=== PATIENT | female | born 2000 | race Caucasian/White ===

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

== ENCOUNTER 2022-11-21 23:09 | Inpatient (IN) | payer OTHER ==
[2022-11-21] MEDS ORDERED: LACTATED RINGERS 500 ML IV ONE (23:34)
[2022-11-21] MEDS ORDERED: METHYLERGONOVINE 0.2 MG/ML VIAL IM PRN (23:41)
[2022-11-21] MEDS ORDERED: fentaNYL 100 MCG/2 ML VIAL IVP PRN (23:41)
[2022-11-21] MEDS ORDERED: miSOPROStoL 200 MCG TABLET PR PRN (23:41)
[2022-11-21] MEDS ORDERED: miSOPROStoL 200 MCG TABLET BC PRN (23:41)
[2022-11-21] MEDS ORDERED: hydrALAZINE INJ 20 MG/ML VIAL IVP PRN ×2 (23:41)
[2022-11-21] MEDS ORDERED: SODIUM CHLORIDE FLUSH 0.9% 10 ML SYRINGE IVP PRN (23:41)
[2022-11-21] MEDS ORDERED: lidocaine 1% 20 ML MDV ID PRN (23:41)
[2022-11-21] MEDS ORDERED: TRANEXAMIC ACID IN NACL 1,000 MG/100 ML BAG IV PRN (23:41)
[2022-11-21] MEDS ORDERED: LABETALOL 20 MG/4 ML SYRINGE IVP PRN ×3 (23:41)
[2022-11-21] MEDS ORDERED: CARBOPROST TROMETHAMINE 250 MCG/ML AMP IM PRN (23:41)
[2022-11-21] MEDS ORDERED: OXYTOCIN 10 UNIT/ML VIAL IM PRN (23:41)
[2022-11-21] MEDS ORDERED: NIFEdipine 10 MG CAPSULE PO PRN (23:41)
[2022-11-21] MEDS ORDERED: TERBUTALINE 1 MG/ML VIAL SUBQ PRN (23:41)
[2022-11-21] MEDS ORDERED: SODIUM CHLORIDE FLUSH 0.9% 10 ML SYRINGE IVP SCH (23:45)
[2022-11-22 00:11] LABS: BASOPHILS # (AUTO) 0.1 10^3/uL (0.0-0.1); BASOPHILS % (AUTO) 0.3 %; EOSINOPHILS # (AUTO) 0.1 10^3/uL (0.0-0.7); EOSINOPHILS % (AUTO) 0.4 %; HCT - HEMATOCRIT 30.8 % (37.0-47.0); HGB - HEMOGLOBIN 10.2 g/dL (12.0-16.0); LYMPHOCYTES # (AUTO) 1.8 10^3/uL (1.5-3.5); LYMPHOCYTES % (AUTO) 11.9 %; MEAN CORPUSCULAR HGB CONC 33.1 g/dL (32.0-36.0); MEAN CORPUSCULAR VOLUME 84.6 fL (81.0-99.0); MEAN PLATELET VOLUME 10.5 fL (7.9-10.8); MONOCYTES # (AUTO) 0.6 10^3/uL (0.0-1.0); MONOCYTES % (AUTO) 4.1 %; NEUTROPHILS # (AUTO) 12.2 10^3/uL (1.5-6.6); NEUTROPHILS % (AUTO) 82.9 %; PLT - PLATELET COUNT 216 10^3/uL (130-450); RED BLOOD COUNT 3.64 10^6/uL (4.20-5.40); RED CELL DISTRIBUTION WIDTH 13.4 % (12.0-15.0); WHITE BLOOD COUNT 14.8 x10^3/uL (4.8-10.8)
[2022-11-22] MEDS ORDERED: ROPIVACAINE 0.2% 200 MG/100 ML BAG EP ONE (00:19)
[2022-11-22] MEDS: LACTATED RINGERS 1,000 ML IV SCH ×2 (00:20→12:07)
--- NOTE | 2022-11-22 00:41 | HISTORY & PHYSICAL EXAMINATION ---
Admit History - Visit Reason Visit Reason: Bleeding - moderate - : 1 Parity: 0 Premature: 0 Ectopic: 0 : 0 Care: positive: [facility] Risk/History: positive: None Complications This : positive: None Smoking Status: Never smoker - Mother's Labs Mother's Blood Type: positive: AB Mother's RH: positive: Positive GBS: positive: Group B Step Negative Rubella Status: positive: Immune Meds/Allgy - Home Medications Home Medications: Ambulatory Orders Medication Instructions Recorded Confirmed Control Implant 1 each SUBQ TITR 06/17/16 01/31/17 Azithromycin [Zithromax] 250 mg PO DAILY 01/31/17 01/31/17 - Allergies Allergies/Adverse Reactions: Allergies Allergy/AdvReac Type Severity Reaction Status Date / Time No Known Drug Allergies Allergy Verified 01/31/17 11:14 Review of Systems - Constitutional Constitutional: denies: Fatigue, Fever, Malaise - Eyes Eyes: denies: Blurred vision, Spots in vision, Dipolpia - Cardiovascular Cariovascular: denies: Irregular heart rate, Palpitations, Chest pain, Edema, Lightheadedness - Respiratory Respiratory: denies: Cough, Wheezing, SOB at rest - Gastrointestinal Gastrointestinal: denies: Abdominal pain, Abdominal distention, Constipation, Diarrhea, Change in bowel habits, Rectal bleeding, Bloody stools, Nausea, Vomiting - Genitourinary Genitourinary: denies: Dysuria, Flank pain - Musculoskeletal Musculoskeletal: denies: Back pain - Integumentary Integumentary: denies: Rash, Pruritis - Neurological Neurological: denies: Headache Physical - Abdominal Exam Vital Signs: Temp Pulse Resp BP Pulse Ox O2 Flow Rate 37.1 C 95 16 148/89 H 98 11/21/22 23:24 11/21/22 23:15 11/21/22 23:15 11/21/22 23:15 11/21/22 23:15 Contraction Frequency (min/apart): 3-6 Contraction Intensity: positive: Mild - Monitoring Heart Rate Baseline: 130 Strip Review: positive: Category II - Presentation Presentation: positive: Vertex - Vaginal Exam Membranes: positive: Membranes intact Dilation (in cm): 3 Effacement (%): 80 Station: positive: -3 Cervical Position: positive: Posterior - Speculum Exam Speculum Exam Performed: positive: No Findings: positive: Other - Other Notes Labor Progress Note/Additional Text: HPI: This 22yo @ 39.4wks gestation by LMP c/w 9.1wk U/S who presents to [facility] w/o complaints of contractions and vaginal bleeding. She states took castor oil at 1400 this afternoon and her contractions began at approximately 2000. She then noticed a large amount of bleeding and a golf ball sized clot at 2300 and presented immediately for evaluation. She denies leakage of any fluid other than blood. She denies abdominal pain. She feels her contractions are difficult to cope with and she requests an epidural for pain management as soon as possible. FHR baseline 140s, minimal variability, no accels, 2 late decelerations noted in a 30 minute period of time. She has been a patient of [facility] in [place] and seeking Heike Ham CNM/SHAHRAM for the duration of her which has remained uncomplicated with the exception of mild anemia. She is supported by her parents and her partner Clark. She is noted to be GBS negative. Dating criteria: LMP: 02/10/2022 - JENNIFER by LMP 11/17/2022 Initial U/S @ 9.1wks NOT concordant with LMP dating. JENNIFER by U/S 11/24/2022 dates . Serial exams - agree float remover Hx: Last pap age 16-unsure why performed at [facility], No hx of abnormals. Medical Hx: none significant Surgical Hx: none Family Hx: noncontributory Meds: Folic acid gummy only Allergies: None known Social: Lives with supportive partner. Plans to move to [place] after the . Works FT as a palliative care nurse. No tobacco, ETOH or recreational drug use. Caffeine intake minimal. course: AB positive, antibody negative Rubella immune NIPS negative MsAFP negative FAS WNL with the exception of cardiac outflow tracts not well visualized. Anteri or placenta, no previa (2.1cm from cervical os). 3VC. Size c/w dates (EFW 55%tile). Completion FAS WNL. Cardiac outflow tracts visualized and WNL. Placental edge now 2.5cm from the internal os @ 21.6wks. Glucola 111 Tdap 09/03/2022 GBS negative Physical exam: Normocephalic, atraumatic Heart RRR w/o M/G/R Lungs CTAB Abdomen gravid, soft, nontender EFW 3400g FHR baseline 130s, minimal variability with intermittent period of moderate variability, no accels, occasional late decels Contractions palpate moderate every 2.5-4 minutes with soft resting tone SVE 3/80/-3, posterior, vertex. Intact membranes Moderate amount of dark red blood noted down patient's legs, on her hands, and 4cm clot noted in vaginal canal with SVE Bilateral LE's trace edema. Mood is stable. Assessment: 22yo @ 39.4wks gestation Suspected placental abruption Early labor GBS neg FHR Category II Plan: alteration tailor apprentice physician notified of reassuring maternal and status and present time in the presence of moderate vaginal bleeding. Anesthesia notified to present for placement of epidural per maternal request. Continuous monitoring. Will closely monitor both and maternal status and notify physician to present for evaluation PRN. Repeat SVE in 2 hours or sooner PRN.
[2022-11-22] MEDS ORDERED: NALOXONE 0.4 MG/ML VIAL IVP PRN (01:22)
[2022-11-22] MEDS ORDERED: ePHEDrine 50 MG/ML VIAL IVP PRN (01:22)
[2022-11-22] MEDS ORDERED: ROPIVACAINE 0.2% 200 MG/100 ML BAG EP PRN (01:22)
[2022-11-22] MEDS ORDERED: METOCLOPRAMIDE 10 MG/2 ML VIAL IVP PRN (01:22)
[2022-11-22] MEDS ORDERED: NALBUPHINE 10 MG/ML AMP IVP PRN (01:22)
[2022-11-22] MEDS ORDERED: diphenhydrAMINE INJ 50 MG/ML VIAL IVP PRN (01:22)
--- NOTE | 2022-11-22 01:28 | ANESTHESIA ---
Pre-Anesthesia VS, & Labs - Diagnosis labor pain - Procedure labor epidural Vital Signs: Temp Pulse Resp BP Pulse Ox O2 Flow Rate 37.1 C 90 20 125/86 H 100 11/22/22 00:41 11/22/22 00:16 11/22/22 00:16 11/22/22 00:16 11/22/22 00:16 Height: 5 ft 2 in Weight (kg): 76.204 kg Body Mass Index: 30.7 BMI Classification: Obese - NPO Other (full stomach) - Is Patient ?: Yes - Lab Results Current Lab Results: Laboratory Tests 11/21/22 00:01: Blood Type AB POSITIVE, Antibody Screen NEGATIVE 11/21/22 00:01: WBC 14.8 H, RBC 3.64 L, Hgb 10.2 L, Hct 30.8 L, MCV 84.6, MCH 28.0, MCHC 33.1, RDW 13.4, Plt Count 216, MPV 10.5, Neut # (Auto) 12.2 H, Lymph # (Auto) 1.8, [place] # (Auto) 0.6, Eos # (Auto) 0.1, Baso # (Auto) 0.1, Absolute Nucleated RBC 0.00, Nucleated RBC % 0.0 Fish Bones: 11/21/22 00:01 Home Medications and Allergies Active Medications Carboprost Tromethamine (Carboprost Tromethamine 250 Mcg/Ml Amp) 250 mcg IM .ONCE PRN PRN Reason: Hemorrhage Diphenhydramine HCl (Diphenhydramine Inj 50 Mg/Ml Vial) 12.5 - 25 mg IVP Q6HR PRN PRN Reason: ITCHING Ephedrine Sulfate (Ephedrine 50 Mg/Ml Vial) 5 mg IVP Q5M PRN PRN Reason: For SBP<100;give until SBP>100 Fentanyl (Fentanyl 100 Mcg/2 Ml Vial) 50 mcg IVP Q1H PRN PRN Reason: Severe Pain (score 7-10) Hydralazine HCl (Hydralazine Inj 20 Mg/Ml Vial) 5 - 10 mg IVP Q20M PRN; Protocol PRN Reason: SBP> or= 160 OR DBP> or= 110 Hydralazine HCl (Hydralazine Inj 20 Mg/Ml Vial) 10 mg IVP .ONCE PRN; Protocol PRN Reason: SBP> or= 160 OR DBP> or= 110 Oxytocin/Sodium Chloride (Pitocin/Sodium Chloride) 500 mls @ 999 mls/hr IV PRN PRN; Protocol PRN Reason: POST- HEMORR PREVENTION Tranexamic Acid (Tranexamic 1,000 Mg/100ml-Nacl) 1,000 mg in 100 mls @ 600 mls/hr IV Q30M PRN PRN Reason: EBL >1200mL and within 3hr Lactated Ringer's (Lr) 1,000 mls @ 125 mls/hr IV .Q8H KARLA Ropivacaine (Naropin 0.2%) 200 mg in 100 mls @ 0 mls/hr EP PRN PRN; Protocol PRN Reason: PAIN Labetalol HCl (Labetalol 20 Mg/4 Ml Syringe) 20 - 80 mg IVP Q10M PRN; Protocol PRN Reason: SBP> or= 160 OR DBP> or= 110 Labetalol HCl (Labetalol 20 Mg/4 Ml Syringe) 20 mg IVP .ONCE PRN; Protocol PRN Reason: SBP> or= 160 OR DBP> or= 110 Labetalol HCl (Labetalol 20 Mg/4 Ml Syringe) 20 - 40 mg IVP Q10M PRN; Protocol PRN Reason: SBP> or= 160 OR DBP> or= 110 Lidocaine HCl (Lidocaine 1% 20 Ml Mdv) 20 ml ID .ONCE PRN PRN Reason: PERINEAL REPAIR Stop: 11/24/22 23:41 Methylergonovine Maleate (Methylergonovine 0.2 Mg/Ml Vial) 0.2 mg IM .ONCE PRN PRN Reason: Hemorrhage Metoclopramide HCl (Metoclopramide 10 Mg/2 Ml Vial) 10 mg IVP Q6HR PRN PRN Reason: Nausea / Vomiting Misoprostol (Misoprostol 200 Mcg Tablet) 600 mcg BC .ONCE PRN PRN Reason: Hemorrhage Misoprostol (Misoprostol 200 Mcg Tablet) 800 mcg MA .ONCE PRN PRN Reason: Hemorrhage Nalbuphine HCl (Nalbuphine 10 Mg/Ml Amp) 2.5 - 5 mg IVP Q4H PRN PRN Reason: ITCHING Naloxone HCl (Naloxone 0.4 Mg/Ml Vial) 0.1 mg IVP Q2M PRN PRN Reason: RR<8 Nifedipine (Nifedipine 10 Mg Capsule) 10 - 20 mg PO Q20M PRN; Protocol PRN Reason: SBP> or= 160 OR DBP> or= 110 Ondansetron HCl (Ondansetron 4 Mg/2 Ml Vial) 4 mg IVP Q6HR PRN PRN Reason: Nausea / Vomiting Oxytocin (Oxytocin 10 Unit/Ml Vial) 10 unit IM .ONCE PRN PRN Reason: Step One if no IV access. Sodium Chloride (Sodium Chloride Flush 0.9% 10 Ml Syringe) 10 ml IVP PRN PRN PRN Reason: NEEDED PER PROVIDER ORDERS Sodium Chloride (Sodium Chloride Flush 0.9% 10 Ml Syringe) 10 ml IVP Q8H KARLA Terbutaline Sulfate (Terbutaline 1 Mg/Ml Vial) 0.25 mg SUBQ .ONCE PRN PRN Reason: Tachystole Control Implant 1 each SUBQ TITR 06/17/16 Azithromycin [Zithromax] 250 mg PO DAILY 01/31/17 Allergies/Adverse Reactions: Allergies Allergy/AdvReac Type Severity Reaction Status Date / Time No Known Drug Allergies Allergy Verified 01/31/17 11:14 Anes History & Medical History - Anesthetic History Anesthesia Complications: reports: No previous complications Family history of Anesthesia Complications: Denies Family history of Malignant Hyperthermia: Denies - Medical History Cardiovascular: reports: None Pulmonary: reports: None Smoking Status: Never smoker - Obstetrical History : 1 Parity: 0 Events: reports: None Complications: reports: None Exam General: Alert, Oriented x3, Cooperative Dental: WNL Mouth Openin Fingerbreadth Neck Mobility: Normal Mallampati classification: I Thyromental Distance: 4-6 cm Respiratory: Lungs clear Cardiovascular: Regular rate Plan Anesthesia Type: Epidural Consent for Procedure(s) Verified and Reviewed: Yes Code Status: Attempt Resuscitation ASA classification: 2-Mild systemic disease Is this case an emergency?: No
--- NOTE | 2022-11-22 01:38 | PROVIDER PROGRESS NOTE ---
Labor Progress Note - Uterine Monitoring Uterine Monitoring Mode: positive: External toco Contraction Frequency (min/apart): 2-5 Contraction Intensity: positive: Moderate Uterine Resting Tone: positive: Soft - Monitoring Monitor Mode: positive: External ultrasound Heart Rate Baseline: 130 Heart Rate Variability: positive: Moderate (6-25 bmp) Accelerations: positive: Absent Decelerations: positive: Late, Intermittent (<50% x20 min) Strip Review: positive: Category II - Vaginal Exam Dilation (in cm): 4 Effacement (%): 80 Station: -2 Cervical Position: Midposition - Labor Progress Note Labor Progress Note/Additional Text: S: Pt comfortable with epidural in place. She is feeling tired but overall she states she is doing well and her mood is good. Partner Clark supportive at the bedside. O: FHR baseline 130s, moderate variability with intermittent periods of minimal variability. No accels, occasional late decelerations. status is overall reassuring at this time. SVE 4/80/-2, midposition. Vertex. AROM occurred at 0130 and was noted to be a moderate amount of clear fluid. Light bleeding noted on exam glove once removed but overall bleeding has been minimal since last SVE. A: 22yo @ 39.4wks gestation by 9.1wk U/S Early labor FHR Category II - overall reassuring at present time GBS neg P: Continuous monitoring. Maintain epidural for pain management. Rotate in bed on peanut ball q 30 minutes. Anticipate .
--- NOTE | 2022-11-22 01:47 | PROCEDURE REPORT ---
- HPI Diagnosis/Indication for NST: Other Current EDU 11/24/22 Gestation 39 Weeks and 5 Days 1 Vital Signs Temperature 37.1 C 11/21/22 23:15 Heart Rate 95 11/21/22 23:15 Respiratory Rate 16 11/21/22 23:15 Blood Pressure 148/89 H 11/21/22 23:15 O2 Saturation 98 11/21/22 23:15 Temperature 37.1 C 11/22/22 00:41 Heart Rate 90 11/22/22 00:16 Respiratory Rate 20 11/22/22 00:16 Blood Pressure 125/86 H 11/22/22 00:16 O2 Saturation 100 11/22/22 00:16 If not protocol: Oxygen Flow, liters/minute - Results and Plan Plan: Nuris presents to [facility] with c/o large amount of vaginal bleeding and blood clot that filled the palm of her hand at 2300 on 11/21/2022. She denies leakage of fluid other than the bleeding. She reports +FM. She has been areli intermittently since approximately 2000 after taking castor oil at 1400 this afternoon. She reports her pain with contractions is severe but denies abdominal pain outside of her contractions and she is breathing through them without difficulty. She is supported by her partner Clark and her parents. NST performed 11/21/2022 NST read 11/21/2022, continuing to 11/22/2022 NST nonreactive. FHR baseline 130s, minimal variability, no accels, occasional late decelerations Contractions palpate moderate every 3-6 minutes with soft resting tone. A/P: Suspect placental abruption vs rapid cervical dilation. director call center sales physician notified and informed of patient and reassuring status at this time and discussed plan of care. Pt will be admitted for expectant management. Anesthesia notified for placement of epidural. I did discuss with her the potential for urgent/emergent delivery if status deteriorates and pt is accepting of delivery if needed. Discussed differential diagnosis/cause of vaginal bleeding with patient and her partner who verbalized understanding. FINAL DIAGNOSIS: Vaginal bleeding, third trimester Early labor >39wks gestation
[2022-11-22] MEDS: DEXTROSE 5%-LACTATED RINGERS 1,000 ML IV SCH ×2 (04:18→10:19)
--- NOTE | 2022-11-22 05:47 | PROVIDER PROGRESS NOTE ---
Labor Progress Note - Uterine Monitoring Uterine Monitoring Mode: positive: External toco Contraction Frequency (min/apart): 3-5 Contraction Intensity: positive: Moderate to strong Uterine Resting Tone: positive: Soft - Monitoring Monitor Mode: positive: External ultrasound Heart Rate Baseline: 130 Heart Rate Variability: positive: Moderate (6-25 bmp) Accelerations: positive: Present, 15x15 Decelerations: positive: None Strip Review: positive: Category I - Vaginal Exam Dilation (in cm): 7 Effacement (%): 90 Station: 0 Cervical Position: Anterior - Labor Progress Note Labor Progress Note/Additional Text: S: Patient comfortable with epidural and is sleeping through contractions. Partner and parents are supportive at the bedside. O: FHR baseline 130s, moderate variability, + accels, no decels Contractions palpate moderate to strong every 3-5 minutes with soft resting tone SVE 7/90/0, anterior,soft. Vertex. Minimal amount of pink blood noted on exam glove with SVE A: 22yo @ 39.5wks gestation by 9.1wk U/S Active labor FHR Category I GBS neg P: Continuous monitoring. Maintain epidural for pain management. Continue rotation on peanut ball in bed. Repeat SVE in 4 hours or sooner PRN. Anticipate .
[2022-11-22] MEDS: ONDANSETRON 4 MG/2 ML VIAL IVP PRN ×2 (06:57→12:01)
[2022-11-22] MEDS: OXYTOCIN/SODIUM CHLORIDE 500 ML IV PRN ×2 (10:55→11:45)
[2022-11-22] MEDS ORDERED: WITCH HAZEL/GLYCERIN 1 PAD TOP PRN (11:45)
[2022-11-22] MEDS ORDERED: HYDROCORTISONE 1% CREAM 28 GM TUBE PR PRN (11:45)
[2022-11-22 11:59] LABS: BASOPHILS # (AUTO) 0.1 10^3/uL (0.0-0.1); BASOPHILS % (AUTO) 0.3 %; EOSINOPHILS % (AUTO) 0.1 %; HCT - HEMATOCRIT 29.9 % (37.0-47.0); HGB - HEMOGLOBIN 9.7 g/dL (12.0-16.0); LYMPHOCYTES # (AUTO) 0.9 10^3/uL (1.5-3.5); LYMPHOCYTES % (AUTO) 4.6 %; MEAN CORPUSCULAR HEMOGLOBIN 28.2 pg (27.0-31.0); MEAN CORPUSCULAR HGB CONC 32.4 g/dL (32.0-36.0); MEAN CORPUSCULAR VOLUME 86.9 fL (81.0-99.0); MEAN PLATELET VOLUME 9.7 fL (7.9-10.8); MONOCYTES # (AUTO) 0.6 10^3/uL (0.0-1.0); MONOCYTES % (AUTO) 3.4 %; NEUTROPHILS # (AUTO) 17.1 10^3/uL (1.5-6.6); NEUTROPHILS % (AUTO) 90.9 %; PLT - PLATELET COUNT 207 10^3/uL (130-450); RED BLOOD COUNT 3.44 10^6/uL (4.20-5.40); RED CELL DISTRIBUTION WIDTH 13.5 % (12.0-15.0); WHITE BLOOD COUNT 18.8 x10^3/uL (4.8-10.8)
--- NOTE | 2022-11-22 12:10 | DELIVERY NOTE ---
Delivery Note - Labor Labor: positive: Augmented by ARM - Infant Delivery Method Delivery Method: positive: Spontaneous vaginal delivery - Presentation Presentation: positive: Vertex, TONY - right occiput anterior - Nuchal Cord Nuchal Cord: positive: None - Amniotic Fluid Description Amniotic Fluid Description: positive: [place] tinged - Episiotomy Type Episiotomy Type: positive: None - Laceration Laceration: positive: 1st degree, Labial, Vaginal - Suture Suture Type: positive: Vicryl Suture Size: positive: 2-0, 4-0 - Delivery Outcome Delivery Outcome: positive: Livebirth - [place] : positive: Placed in direct skin contact with mother, Bulb syringe, Stimulated, [place] used sex: positive: Female - Cord Cord: positive: 3 vessels - Placenta Placenta: positive: Intact, Spontaneous - Estimated Blood Loss Estimated Blood Loss (in cc): 1,294 - Post Delivery Events Post Delivery Events: positive: Hemorrhage - Delivery Comments (Free Text/Narrative) Delivery Comments (Free Text/Narrative): Labor: This 22yo @ 39.5wks gestation by 9.1wk U/S presented to [facility] with c/o vaginal bleeding and contractions. Cervix was 3/80/-3, vertex and posterior with large amount of blood noted on patients hand, legs, and feet bilaterally with 4cm clot in vaginal vault with SVE. FHR pattern demonstrated Category II pattern initially however overall remained reassuring and became Category I for the duration of her labor course. Epidural placed per maternal request. AROM occurred at 0130 and was noted to be a moderate amount of clear fluid. For the remainder of her labor course the vaginal bleeding was minimal with occasional scant amount of bloody show as expected. She progressed to c/c/ +2 at 1017 with onset of active pushing at 1022. : Normal SVB of viable female on 11/22/2022 @ 1043. No nuchal cord. The was placed on maternal abdomen, stimulated, dried, and placed skin to skin. 's were 8/9 at 1 and 5 minutes respectively. Pitocin administered via IV for hemostasis. The umbilical cord was allowed to stop pulsating at which time it was doubly clamped by CNM and cut by FOB. 3VC. Cord blood was obtained. Fundal massage and gentle cord traction applied for active management of the third stage. Placenta delivered spontaneously and intact @ 1055. Fouth stage: Uterine fundus firm initially followed by intermittent uterine atony with subsequent increased vaginal bleeding. Pt was given 600mcg BC misoprostol and 0.2mg IM methergine and TXA was initiated per protocol. The perineum, vagina, and cervix were inspected and noted to have a 1st degree vaginal laceration which was repaired using a 2-[address]-1 needle, in standard fashion and under sterile conditions. In addition she was noted to have a 1st degree right labial laceration which was repaired using a 4-0 vicryl on an SH needle. Vaginal examination following repair was performed. Tissues well approximated. initiated. Family bonding well. Uterine fundus firm without excessive bleeding following administration of medication of management of hemorrhage. Pt stable and remains asymptomatic throughout. Both mother and baby were left in stable condition. QBL 1294mL.
[2022-11-22] MEDS: ACETAMINOPHEN 500 MG TABLET PO SCH ×4 (14:09→23:25)
[2022-11-22] MEDS: IBUPROFEN 800 MG TABLET PO SCH ×2 (14:09→20:46)
[2022-11-22] MEDS: DOCUSATE SODIUM 100 MG CAPSULE PO SCH (21:11)
[2022-11-23] MEDS: IBUPROFEN 800 MG TABLET PO SCH ×3 (02:56→17:09)
[2022-11-23 07:06] LABS: BASOPHILS % (AUTO) 0.3 %; EOSINOPHILS # (AUTO) 0.1 10^3/uL (0.0-0.7); EOSINOPHILS % (AUTO) 0.7 %; HCT - HEMATOCRIT 23.3 % (37.0-47.0); HGB - HEMOGLOBIN 7.5 g/dL (12.0-16.0); LYMPHOCYTES # (AUTO) 0.9 10^3/uL (1.5-3.5); LYMPHOCYTES % (AUTO) 7.7 %; MEAN CORPUSCULAR HEMOGLOBIN 28.1 pg (27.0-31.0); MEAN CORPUSCULAR HGB CONC 32.2 g/dL (32.0-36.0); MEAN CORPUSCULAR VOLUME 87.3 fL (81.0-99.0); MEAN PLATELET VOLUME 9.9 fL (7.9-10.8); MONOCYTES # (AUTO) 0.5 10^3/uL (0.0-1.0); MONOCYTES % (AUTO) 4.1 %; NEUTROPHILS # (AUTO) 9.5 10^3/uL (1.5-6.6); NEUTROPHILS % (AUTO) 85.8 %; PLT - PLATELET COUNT 144 10^3/uL (130-450); RED BLOOD COUNT 2.67 10^6/uL (4.20-5.40); RED CELL DISTRIBUTION WIDTH 13.7 % (12.0-15.0); WHITE BLOOD COUNT 11.1 x10^3/uL (4.8-10.8)
[2022-11-23] MEDS: ACETAMINOPHEN 500 MG TABLET PO SCH ×2 (08:07→17:09)
[2022-11-23] MEDS: DOCUSATE SODIUM 100 MG CAPSULE PO SCH ×2 (10:24→21:14)
--- NOTE | 2022-11-23 11:18 | PROVIDER PROGRESS NOTE ---
Subjective - Subjective Subjective: S: Bonding well with baby. without difficulty. Pain well controlled with oral medications. Bleeding decreased and is light. Denies dizziness, lightheadedness, or nausea. She states she is fatigued but has slept very little throughout the night. O: Heart RRR w/o M/G/R, lungs CTAB, abdomen sot and nontender with fundus firm at U. Perineum intact, repair with mild edema, light lochia rubra. Bilateral LE's trace edema. Mood is good. VS stable Hgb 10.2-->9.7-->7.5 Hcg 30.8-->29.9-->23.3 PLT 216-->207-->144 A: 22yo -->P1 PPD#1 s/p TSVD viable female infant PP hemorrhage 1st degree perineal laceration - intact P: Initiate ferrous gluconate iron infusion x 1 secondary to pp hemorrhage and drop in H/H & plt Continue routine pp care and medications. Evaluate for discharge home tomorrow. Pt verbalized understanding and denies further questions or concerns at this time. Objective - Vital Signs/Intake & Output Vital Signs: Vital Signs x48h Temp Pulse Resp BP Pulse Ox 11/23/22 08:00 36.5 C 71 18 112/60 100 11/23/22 03:57 36.5 C 88 100 H 123/79 Intake & Output: Intake & Output 11/20/22 11/21/22 11/22/22 11/23/22 23:59 23:59 23:59 23:59 Intake Total 3833.334 Output Total 1760 Balance 2073.334 - Lab Results Fish Bones: 11/23/22 06:52 Other Labs: Lab Results x24hrs 11/23/22 11/22/22 Range/Units 06:52 11:54 WBC 11.1 H 18.8 H (4.8-10.8) x10^3/uL RBC 2.67 L 3.44 L (4.20-5.40) 10^6/uL Hgb 7.5 L 9.7 L (12.0-16.0) g/dL Hct 23.3 L 29.9 L (37.0-47.0) % MCV 87.3 86.9 (81.0-99.0) fL MCH 28.1 28.2 (27.0-31.0) pg MCHC 32.2 32.4 (32.0-36.0) g/dL RDW 13.7 13.5 (12.0-15.0) % Plt Count 144 207 (130-450) 10^3/uL MPV 9.9 9.7 (7.9-10.8) fL Neut # (Auto) 9.5 H 17.1 H (1.5-6.6) 10^3/uL Lymph # (Auto) 0.9 L 0.9 L (1.5-3.5) 10^3/uL [place] # (Auto) 0.5 0.6 (0.0-1.0) 10^3/uL Eos # (Auto) 0.1 0.0 (0.0-0.7) 10^3/uL Baso # (Auto) 0.0 0.1 (0.0-0.1) 10^3/uL Absolute Nucleated RBC 0.00 0.00 x10^3/uL Nucleated RBC % 0.0 0.0 /100WBC
[2022-11-23] MEDS ORDERED: FERRIC GLUCONATE 125 MG in SODIUM CHLORIDE 0.9% 100ML 100 ML IV ONE (11:19)
[2022-11-24] MEDS: IBUPROFEN 800 MG TABLET PO SCH (00:44)
--- NOTE | 2022-11-24 02:09 | Discharge Plan ---
Discharge Plan Problem Reviewed?: Yes Disposition: Home, Self Care Condition: Good Diet: Regular Activity Restrictions: No Restrictions Shower Restrictions: No Driving Restrictions: No Weight Bearing: Full Weight Instruction Topics: Vaginal After No Smoking: If you smoke, Please STOP! Call for help. Follow-up with: Ariela Garcia CNM, ARNP [Provider Admit Priv/Credential] - 1 Week (Has phone visit scheduled with Ariela Garcia 12/01/2021 @ 1500.)
--- NOTE | 2022-11-24 02:26 | DISCHARGE SUMMARY ---
Discharge Summary Condition at Discharge: Good Discharge Disposition: 01 Home, Self Care - HOSPITAL COURSE Hospital Course: Date of Admission: 11/21/2022 Date of Discharge 11/24/2022 Diagnosis on Admission: 1. 22yo @ 39.4wks gestation 2. Suspected placental abruption 3. Early labor 4. GBS neg 5. FHR Category II Date of Discharge: 1. 22yo PPD#2 s/p TSVD viable female 2. 3. Acute blood loss anemia following 1294mL hemorrhage at delivery Brief History: She is a [facility] who presented on 11/21/2022 with c/o large amount of vaginal bleeding and contractions. Upon arrival she was noted to have large amount of vaginal bleeding with 4cm clot expelled from vaginal vault with SVE. She was found to contract every 3-6 minutes with soft resting tone. SVE 3/80/-3, posterior and vertex with intact membranes. She was admitted for close observation and expectant management of labor. She received an epidural per her request. Her bleeding was minimal throughout her labor course following initial assessment and status remained reassuring throughout her labor course. She progressed to sponatneously deliver a viable female infant on 11/22/2022 @ 1043 following a 21 minute second stage. Apgars were 8/9 at 1 and 5 minutes respectively. Secondary to increased rate of vaginal bleeding the patient was given hemorrhage medications per protocol (see delivery note) with a total QBL of 1294mL. Patient was initially nauseous and lightheaded but this resolved. Her Hgb/Hct decreased (Hgb 10.2-->9.7-->7.5; Hcg 30.8-->29.9-->23.3; PLT 216-->207-->144) and an iron infusion was initiated on PPD#1. Patient remained asymptomatic through the duration of her course. She has been doing well in her course. She is ambulating and tolerating a regular diet. She is urinating without difficulty and her lochia is normal. Her pain is well controlled with oral medications. She is without difficulty and she is bonding well with her baby. Her transitioned well initially but is being transported via ground to [facility] now secondary to desaturations, low lung volumes, pulmonary infiltrate, questionable right eventration and cardiomegally which developed at 36 hours of life. Differential diagnosis per rn clinical evaluation are congenital cardiac disease, persistent pulmonary hypertension or infection. She will be discharged now so she can transport with her . She has been given instructions to continue taking her vitamin while and to continue taking ibuprofen and tylenol over the counter as needed for pain management. She intends to follow up with myself at [facility] in 1 week or sooner if needed. She has been given precautions to call if she has any worsening fevers, chills, abdominal pain, increased vaginal bleeding or foul smelling vaginal lochia. Physical Exam: Normocephalic, atraumatic. Heart RRR w/o M/G/R, lungs CTAB, abdomen soft and nontender with fundus firm at U-1, perineum intact, light lochia rubra, bilateral LE's trace edema. Mood is stable however teary given status and need for urgent transfer understandably. She is well supported by her partner Clark. - ALLERGIES Allergies/Adverse Reactions: Allergies Allergy/AdvReac Type Severity Reaction Status Date / Time No Known Drug Allergies Allergy Verified 01/31/17 11:14 - MEDICATIONS Home Medications: Ambulatory Orders Medication Instructions Recorded Confirmed Control Implant 1 each SUBQ TITR 06/17/16 01/31/17 Azithromycin [Zithromax] 250 mg PO DAILY 01/31/17 01/31/17 - LABS Result Diagrams: 11/23/22 06:52
[2022-11-24] MEDS: ACETAMINOPHEN 500 MG TABLET PO SCH (02:29)
[2022-11-24 04:19] VITALS: BP 127/74
--- NOTE | 2022-11-24 07:33 | Labor Flowsheet ---
Labor Flowsheet Datetime Report Generated by CPN: 11/24/2022 07:33 Datetime: 11/24/2022 04:13 VITAL SIGNS NBP Sys/Mikayla/Mean (mmHg): 127 : 74 : 86 Pulse: 95 Datetime: 11/23/2022 03:39 SpO2 (%): 100 Datetime: 11/22/2022 12:30 Stage of : Recovery Respirations: 16 Temperature (C): 37.7 Temperature Route: Oral Datetime: 11/22/2022 10:43 UTERINE ACTIVITY Monitor Mode: External Frequency (min): 2-3 Quality: Strong Duration (sec): 60 Pattern: Normal: <= 5 Contractions in 10 Minutes Resting Tone (Palpate): Relaxed FHR Baseline Rate : 130 Variability: Moderate 6-25 bpm Comments: in between pushing. Datetime: 11/22/2022 10:33 Pushing Progress: Descent with Pushing Datetime: 11/22/2022 10:30 Accelerations: 15X15 Datetime: 11/22/2022 10:29 LaborFlag: Labor Datetime: 11/22/2022 10:22 STAGE 2 Pushing: Coached on Pushing; Urge to Push Pushing Position: Pushing with Contractions Datetime: 11/22/2022 10:21 I/O Interventions: Warren Discontinued Datetime: 11/22/2022 10:17 VAGINAL EXAM Dilatation (cm): 10.0 Station: 2 Exam by: hortencia Vaginal Bleeding: Scant Cervix, Consistency: Soft Cervix, Position: Anterior Datetime: 11/22/2022 10:15 ASSESSMENT A Monitor Mode: Telemetry Decelerations: None Category: Category I Oxygen Method: Room Air Datetime: 11/22/2022 10:14 COMMUNICATION Communication: Provider at Bedside Communication Comments: mahnaz hortencia cnm Datetime: 11/22/2022 10:00 FHR Baseline Changes: No Baseline Change Datetime: 11/22/2022 09:35 Provider Reviewed Strip: Yes Notification Reason: Labor Status Datetime: 11/22/2022 09:28 Effacement (%): 100 Patient Position/Activity: Right Lateral Datetime: 11/22/2022 08:10 Hygiene: Kaylin Care; Underpad Changed Datetime: 11/22/2022 07:06 Medication Comments: Ropivacaine epidural bag replaced by M. O'Driver RN Datetime: 11/22/2022 06:59 MEDICATIONS Antiemetics/Antacids: Zofran (mg) @ 4mg Datetime: 11/22/2022 06:07 Patient Care Comments: chux changed with blood show and diarrhea noted. peanut ball between knees Datetime: 11/22/2022 05:06 Monitor Interventions for UA: Alderson Adjusted Datetime: 11/22/2022 04:38 PATIENT CARE IV/Blood Work: IV Infusing per Order (Annotations: [id number] @125ml/hr) Datetime: 11/22/2022 03:56 Provider Notified (Name): Hortencia CNM Datetime: 11/22/2022 03:00 Anesthesia Level Check: T9 Datetime: 11/22/2022 02:30 Contraction Comments: unable to assess contraction pattern due to maternal movement Datetime: 11/22/2022 02:18 Monitor Interventions for FHR: Ultrasound Adjusted Datetime: 11/22/2022:24 Membrane Status: Ruptured Membranes Rupture Method: Artificial Amniotic Fluid Color: Clear Datetime: 11/22/2022:01 PAIN Pain Scale: 3 Pain Presence: Intermittent Pain Type: Contraction Pain Location: Abdomen Pain Relief Measures: Epidural Given Pain Coping: Breathing Through Contractions Pain Assessment Comments: right abdomen Datetime: 11/22/2022 01:00 Epidural Procedure Other: Pump Started Datetime: 11/22/2022 00:50 Epidural Procedure: Test Dose Anesthesia Comments: neg aspiration Datetime: 11/22/2022 00:41 PROCEDURE TIME OUT Procedure Verify: Correct Patient Identity; Correct Side and Site are Marked; Accurate Procedure Co nsent Form; Agreement on Procedure to be Done; Correct Patient Position ANESTHESIA Epidural Positioning: Sitting
== END 2022-11-24 04:45 | disposition home or self-care (01) | DRG 806 ==
LOC: WFO 23:09 → FBP 23:12 → WFO 23:40 → FBP 23:41
PROVIDERS: ADMIT Nurse Practitioner Obstetrics & Gynecology; ATTEND Nurse Practitioner Obstetrics & Gynecology
PROC: 10907ZC Drainage of Amniotic Fluid, Therapeutic from Products of Conception, Via Natural or Artificial Opening (ICD-10-PCS; principal; 2022-11-22)
PROC: 10E0XZZ Delivery of Products of Conception, External Approach (ICD-10-PCS; 2022-11-22)
PROC: 0HQ9XZZ Repair Perineum Skin, External Approach (ICD-10-PCS; 2022-11-22)
DX: O45.93 Premature separation of placenta, unspecified, third trimester (principal); D62 Acute posthemorrhagic anemia; Z37.0 Single live birth; O72.1 Other immediate postpartum hemorrhage; O70.0 First degree perineal laceration during delivery; O76 Abnormality in fetal heart rate and rhythm complicating labor and delivery; Z3A.39 39 weeks gestation of pregnancy; O99.214 Obesity complicating childbirth; O99.02 Anemia complicating childbirth
CPT/HCPCS: 36415; 85025; 86850; 86900; 86901; 99215; A9270; J2210; J2916; J7120